=== PATIENT | male | born 1985 | race Caucasian/White ===

== ENCOUNTER 2024-05-26 01:01 | Emergency (ER) | payer MEDICAID, SELFPAY ==
--- OUTSIDE RECORDS SUMMARY | 2024-05-26 05:29 | XMS_ITS | Referral Summary ---
Author Organization [facility] Address [address] [place] [id number] Care Team Providers Care Garnett Feeder Name Role Phone Unknown, Notinfile Primary Care Provider Unavail able Encounters Date Type Department Care Team Description 04/29/2024 12:32 PM AUTO RESEARCH ENGINEER - 05/03/2024 7:16 PM AUTO RESEARCH ENGINEER Hospital Encounter [address] [address] Justus Walters MD Mustafa, Saim, DO Alcohol withdrawal syndrome with complication (HCC) (Primary Dx) Discharge Disposition: Discharge to home or self care from Last 3 Months Allergies No known active allergies Medications hydrOXYzine (VISTARIL) 25 mg capsule Take 1 capsule (25 mg total) by mouth every 6 (six) hours as needed for anxiety (Pt stated he takes it 3 times a day) 30 capsule 1 5 Active cyanocobalamin (Vitamin B-12) 2,000 mcg tabletIndicati ons:Prevention of Vitamin B12 Deficiency Take 1 tablet (2,000 mcg total) by mouth daily 30 tablet 1 5 07/04/19 25 Active folic acid (FOLVITE) 1 mg tablet Take 1 tablet (1 mg total) by mouth daily 30 tablet 1 5 07/04/19 25 Active nicotine (NICODERM CQ) [address] 1 patch on the skin daily 20 patch 5 06/03/19 25 Active thiamine (VITAMIN B1) 100 mg tabletIndicati ons:Thiamine Deficiency Take 1 tablet (100 mg total) by mouth daily 30 tablet 5 06/03/19 25 Active thiamine (VITAMIN B-1) 50 mg tablet Take 1 tablet (50 mg total) by mouth daily 30 tablet 3 4 04/29/19 25 Discontinued folic acid (FOLVITE) 1 mg tablet Take 1 tablet (1 mg total) by mouth daily 30 tablet 3 4 04/29/19 25 Discontinued hydrOXYzine (VISTARIL) 25 mg capsule Take 1 capsule (25 mg total) by mouth every 6 (six) hours as needed for anxiety (Pt stated he takes it 3 times a day) 05/03/19 25 Discontinued Active Problems Problem Noted Date Diagnosed Date Alcohol withdrawal syndrome with complication Moderate protein-calorie malnutrition (CMS/HCC) 01/15/2024 Alcohol withdrawal syndrome without complication 01/14/2024 Nausea & vomiting 01/14/2024 Elevated LFTs 01/14/2024 Hypomagnesemia 01/14/2024 Tobacco abuse 01/14/2024 Social History Tobacco Use Types Packs/Day Years Used Date Smoking Tobacco: Every Day Vaping Started: 2017 Tobacco Cessation:Ready to Q uit: Not Asked; Counseling Given: Not Answered [employer] Answer Date Recorded In the past 12 months has [employer], [employer], or water [employer] threatened to shut off services in your home? No 04/30/2024 Social Connection and Isolat ion Panel [NHANES] Answer Date Recorded In a typical week, how many times do you talk on the phone with family, friends, or neighbors? More than three times a week 04/30/2024 How often do you get togethe r with friends or relatives? More than three times a week 04/30/2024 How often do you attend chur ch or muslim services? Never 04/30/2024 Do you belong to any clubs o r organizations such as catholic groups, unions, fraternal or athletic groups, or school groups? No 04/30/2024 How often do you attend meet ings of the clubs or organizations you belong to? Never 04/30/2024 Are you , , di vorced, , never , or living with a partner? Never 04/30/2024 Overall Financial Resource Strain (CARDIA) Answe r Date Recorded How hard is it for you to pa y for the very basics like food, housing, medical care, and heating? Not hard at all 04/30/2024 Hunger Vital Sign Answer Date Recorded Within the past 12 months, y ou worried that your food would run out before you got the money to buy more. Never true 04/30/19 25 Within the past 12 months, t he food you bought just didn't last and you didn't have money to get more. Never true 04/30/2024 PRAPARE - Transportation Answer Date Re corded In the past 12 months, has l ack of transportation kept you from medical appointments or from getting medications? No 06/2024 In the past 12 months, has l ack of transportation kept you from meetings, work, or from getting things needed for daily living? No 04/30/2024 Housing Stability Vital Sign Answer Trent e Recorded In the last 12 months, was t here a time when you were not able to pay the mortgage or rent on time? No 04/30/2024 In the past 12 months, how m any times have you moved where you were living? 1 04/30/2024 At any time in the past 12 m [facility], were you homeless or living in a long-term (including now)? No 04/30/2024 Personal Safety Answer Date Recorded Have you ever been in or are you currently in a harmful physical or emotional relationship or is someone making you feel afraid or unsafe? Denies 04/29/2024 Sex and Gender Information Value Date Recorded Sex Assigned at Not on file Legal Sex Male 2:05 PM CDT Gender Identity Male 04/29/2024 11:05 AM AUTO RESEARCH ENGINEER Sexual Orientation Not on file Last Filed Vital Signs Vital Sign Reading Time Taken Comments Blood Pressure 123/71 05/03/2024 3:54 PM AUTO RESEARCH ENGINEER Pulse 82 05/03/2024 3:54 PM AUTO RESEARCH ENGINEER Temperature 36.9 ??C (98.4 ??F) 05/03/2024 3:54 PM CS T Respiratory Rate 18 05/03/2024 3:54 PM AUTO RESEARCH ENGINEER Oxygen Saturation 99% 05/03/2024 3:54 PM AUTO RESEARCH ENGINEER Inhaled Oxygen Concentration - - Weight 70.4 kg (155 lb 4.8 oz) 04/29/2024 3:40 P M AUTO RESEARCH ENGINEER Height 175.3 cm (5' 9 ) 04/29/2024 3:40 PM AUTO RESEARCH ENGINEER Body Mass Index 22.93 04/29/2024 3:40 PM AUTO RESEARCH ENGINEER Plan of Treatment Not on file Procedures Procedure Name Priority Date/Time Associated Diagnosis Comments EGFR Routine 05/01/2024 3:26 AM AUTO RESEARCH ENGINEER DIFFERENTIAL AUTO Routine 05/01/2024 3:2 6 AM AUTO RESEARCH ENGINEER PHOSPHORUS Routine 05/01/2024 3:26 AM AUTO RESEARCH ENGINEER MAGNESIUM Routine 05/01/2024 3:26 AM AUTO RESEARCH ENGINEER COMPREHENSIVE METABOLIC PANEL Routine 05/01/2024 3:26 AM AUTO RESEARCH ENGINEER CBC WITH AUTO DIFFERENTIAL Routine 05/01/2024 3:26 AM AUTO RESEARCH ENGINEER XR CHEST 1 VIEW IP Routine 04/30/2024 10:36 AM AUTO RESEARCH ENGINEER ECG 12-LEAD Routine 04/30/2024 9:10 AM AUTO RESEARCH ENGINEER VITAMIN B12 Routine 04/30/2024 8:42 AM AUTO RESEARCH ENGINEER TROPONIN T HIGH-SENSITIVITY Routine 04/30/2024 8:42 AM AUTO RESEARCH ENGINEER EGFR Routine 04/30/2024 8:42 AM AUTO RESEARCH ENGINEER DIFFERENTIAL AUTO Routine 04/30/2024 8:4 2 AM AUTO RESEARCH ENGINEER PHOSPHORUS Routine 04/30/2024 8:42 AM AUTO RESEARCH ENGINEER MAGNESIUM Routine 04/30/2024 8:42 AM AUTO RESEARCH ENGINEER COMPREHENSIVE METABOLIC PANEL Routine 04/30/2024 8:42 AM AUTO RESEARCH ENGINEER CBC WITH AUTO DIFFERENTIAL Routine 04/30/2024 8:42 AM AUTO RESEARCH ENGINEER ECG 12-LEAD Routine 04/29/2024 1:26 PM AUTO RESEARCH ENGINEER DRUGS OF ABUSE SCREEN, URINE WITHOUT CONFIRMATION STAT 04/29/2024 11:15 AM AUTO RESEARCH ENGINEER URINALYSIS AND REFLEX TO MICROSCOPIC AND CULTURE STAT 04/29/2024 11:15 AM AUTO RESEARCH ENGINEER EGFR STAT 04/29/2024 11:04 AM AUTO RESEARCH ENGINEER DIFFERENTIAL AUTO STAT 04/29/2024 11: 04 AM AUTO RESEARCH ENGINEER ETHANOL STAT 04/29/2024 11:04 AM AUTO RESEARCH ENGINEER THYROID FUNCTION CASCADE STAT 04/29/2024 11:04 AM AUTO RESEARCH ENGINEER COMPREHENSIVE METABOLIC PANEL STAT 04/29/2024 11:04 AM AUTO RESEARCH ENGINEER CBC WITH AUTO DIFFERENTIAL STAT 04/29/2024 11:04 AM AUTO RESEARCH ENGINEER INFLUENZA A/B, RSV, AND COVID-19 PCR Routine 04/29/2024 11:04 AM AUTO RESEARCH ENGINEER from Last 3 Months Results * eGFR (05/01/2024 3:26 AM AUTO RESEARCH ENGINEER) eGFR >90 >=60 mL/min/1. 73 m2 Comment: Interpretive Data Reference Interval Normal ?>/= 90 mL/min/1.73m2 Mildly decreased* ? 60 - 89 mL/min/1.73m2 Mildly to moderately decreased ?45 - 59 mL/min/1.73m2 Moderately to severely decreased ??30 - 44 mL/min/1.73m2 Severely decreased ?15 - 29 mL/min/1.73m2 Kidney Failure ?< 15 ??mL/min/1.73m2 *Relative to young adult level Estimated glomerular filtration rate is determined by the 2020 CKD-EPI equation recommended by the National Kidney Foundation (A Unifying Approach to GFR Estimation: Recommendations of the NKF-ASK Task Force on Reassessing the Inclusion of Race in Diagnosing Kidney Disease, JASN 2020). The CKD-EPI equation should not be used for patients with unstable renal function and has not been validated in children and those over 70. Current interpretive data was last reviewed 2021. Blood 05/01/2024 3:26 AM AUTO RESEARCH ENGINEER 05/01/2024 3:40 AM AUTO RESEARCH ENGINEER Marilia Cooper NP LAB BLOOD ORDERABLES Valeri sharlene Result [facility] [address] [facility] Department [place] [address] * Differential, auto (05/01/2024 3:26 AM AUTO RESEARCH ENGINEER) Neutrophil abs 4.2 1.5 - 6.5 K/cumm Imm gran abs 0.0 0.0 - 0.1 K/cumm [facility] Lymphocyte abs 2.3 0.8 - 3.3 K/cumm [facility] Monocyte abs 0.6 0.2 - 0.8 K/cumm [facility] Eosinophil abs 0.3 0.0 - 0.5 K/cumm [facility] Basophil abs 0.1 0.0 - 0.1 K/cumm [facility] Neutrophil pct 56.6 % [facility] Comment: Interpretive Data Percent cell count reference ranges are not reported, since discordance with absolute values may lead to misinterpretation of CBC data. Current Interpretive Data was last revised on 2017. Imm gran pct 0.3 % [facility] Comment: Interpretive Data Percent cell count reference ranges are not reported, since discordance with absolute values may lead to misinterpretation of CBC data. Current Interpretive Data was last revised on 2017. Lymphocyte pct 30.7 % [facility] Comment: Interpretive Data Percent cell count reference ranges are not reported, since discordance with absolute values may lead to misinterpretation of CBC data. Current Interpretive Data was last revised on 2017. Monocyte pct 8.0 % [facility] Comment: Interpretive Data Percent cell count reference ranges are not reported, since discordance with absolute values may lead to misinterpretation of CBC data. Current Interpretive Data was last revised on 2017. Eosinophil pct 3.7 % [facility] Comment: Interpretive Data Percent cell count reference ranges are not reported, since discordance with absolute values may lead to misinterpretation of CBC data. Current Interpretive Data was last revised on 2017. Basophil pct 0.7 % [facility] Comment: Interpretive Data Percent cell count reference ranges are not reported, since discordance with absolute values may lead to misinterpretation of CBC data. Current Interpretive Data was last revised on 2017. Blood 05/01/2024 3:26 AM AUTO RESEARCH ENGINEER 05/01/2024 3:40 AM AUTO RESEARCH ENGINEER Marilia Cooper NP LAB BLOOD ORDERABLES Valeri l Result [facility] [address] [facility] [place] [address] * CBC with auto differential (05/01/2024 3:26 AM AUTO RESEARCH ENGINEER) [facility] WBC 7.4 3.8 - 9.9 K/cumm Hgb 13.0 13.0 - 17.5 g/dL [facility] Hct 39.0 38.9 - 50.3 % [facility] Plt 226 150 - 400 K/cumm [facility] MPV 9.5 9.1 - 12.3 fL [facility] RBC 4.33 4.30 - 5.80 M/cumm [facility] MCV 90.1 81.3 - 96.4 fL [facility] MCH 30.0 27.1 - 33.3 pg [facility] MCHC 33.3 32.3 - 35.7 g/dL [facility] RDW CV 12.1 11.1 - 14.9 % [facility] RDW SD 39.7 35.7 - 48.1 fL [facility] NRBC abs 0.00 0.00 - 0.01 K/cumm [facility] Blood 05/01/2024 3:26 AM AUTO RESEARCH ENGINEER 05/01/2024 3:40 AM AUTO RESEARCH ENGINEER Marilia Cooper NP LAB BLOOD ORDERABLES Valeri l Result Performing Organization Address [facility] Co de Phone Number [id number] [address] * Phosphorus (05/01/2024 3:26 AM AUTO RESEARCH ENGINEER) [facility] Phosphorus, pl 4.4 2.3 - 4.5 mg/dL Blood 05/01/2024 3:26 AM AUTO RESEARCH ENGINEER 05/01/2024 3:40 AM AUTO RESEARCH ENGINEER Marilia Cooper SPUN PASTE MACHINE OPERATOR LAB BLOOD ORDERABLES Valeri l Result Performing Organization Address [facility] Co de Phone Number [address] [place] [address] * Magnesium (05/01/2024 3:26 AM AUTO RESEARCH ENGINEER) [facility] Magnesium 1.8 1.4 - 2.5 mg/dL Blood 05/01/2024 3:26 AM AUTO RESEARCH ENGINEER 05/01/2024 3:40 AM AUTO RESEARCH ENGINEER Marilia Cooper SPUN PASTE MACHINE OPERATOR LAB BLOOD ORDERABLES Valeri l Result Performing Organization Address [facility] de Phone Number [address] [address] * (ABNORMAL) Comprehensive metabolic panel (05/01/2024 3:26 AM AUTO RESEARCH ENGINEER) [facility] Sodium 139 135 - 145 mmol/L Potassium, pl 3.9 3.3 - 4.9 mmol/L [facility] Chloride 105 97 - 110 mmol/L [facility] CO2 24 22 - 32 mmol/L [facility] Anion gap 10 2 - 15 mmol/L [facility] BUN 12 6 - 25 mg/dL [facility] Creatinine 0.70(L) 0.80 - 1.30 mg/dL [facility] Glucose 109 70 - 199 mg/dL [facility] Comment: Interpretive Data Fasting glucose >/= 126 mg/dl is diagnostic for diabetes. ?? Fasting is defined as no caloric intake for at least 8 hours. Fasting glucose between 100 mg/dl to 125 mg/dl is diagnostic of prediabetes. In a patient with classic symptoms of hyperglycemia or hyperglycemic crisis, a random glucose >/= 200 mg/dl is diagnostic for diabetes. In the absence of unequivocal hyperglycemia, results should be confirmed by repeat testing. The classification and Diagnosis of Diabetes Diabetes Care 2021; 46: S19-S40. Current interpretive data was last revised 2022. Calcium 9.5 8.5 - 10.3 mg/dL [facility] Bilirubin, total 0.3 0.1 - 1.2 mg/dL [facility] Protein, pl 6.5 6.5 - 8.5 g/dL [facility] Albumin 4.0 3.5 - 5.0 g/dL [facility] Alk phos 120 40 - 130 Units/L [facility] ALT 12 7 - 55 Units/L [facility] AST 20 10 - 50 Units/L [facility] Blood 05/01/2024 3:26 AM AUTO RESEARCH ENGINEER 05/01/2024 3:40 AM AUTO RESEARCH ENGINEER Marilia Cooper SPUN PASTE MACHINE OPERATOR LAB BLOOD ORDERABLES Valeri l Result [facility] [address] [facility] Department [place] [address] * XR Chest 1 View (04/30/2024 10:36 AM AUTO RESEARCH ENGINEER) Anatomical Region Laterality Modality Body, Chest N/A Computed Radiogr aphy 04/30/2024 12:3 9 PM AUTO RESEARCH ENGINEER Narrative 04/30/2024 12:41 PM AUTO RESEARCH ENGINEER EXAM DESCRIPTION: XR CHEST 1 VIEW REASON FOR STUDY: chest pain, productive cough ?? chest pain, productive cough ?? TECHNIQUE: 1 ??radiographic view(s) of the chest. COMPARISON: None available FINDINGS: LUNGS: ??No pneumonic consolidation or pulmonary edema is seen. ??No pleural effusion or pneumothorax. ?? HEART/MEDIASTINUM: ??Normal heart size and cardiomediastinal contours. LINES/TUBES: ??None. BONES: ??No acute displaced fracture or aggressive bone lesion is seen. Unremarkable visualized upper abdomen. IMPRESSION: No acute cardiopulmonary findings. THIS IS AN ELECTRONICALLY VERIFIED FINAL REPORT 04/30/2024 12:41 PM - Electronically signed by ??Vin VALIENTE D: ??04/30/2024 12:41 PM T: Report ID: [id number] Reading Location: ??[id number] Procedure Note Vin Snow MD - 04/30/2024 EXAM DESCRIPTION: XR CHEST 1 VIEW REASON FOR STUDY: chest pain, productive cough chest pain, productive cough TECHNIQUE: 1 radiographic view(s) of the chest. COMPARISON: None available FINDINGS: LUNGS: No pneumonic consolidation or pulmonary edema is seen.No pleural effusion or pneumothorax. HEART/MEDIASTINUM: Normal heart size and cardiomediastinal contours. LINES/TUBES: None. BONES: No acute displaced fracture or aggressive bone lesion is seen. Unremarkable visualized upper abdomen. IMPRESSION: No acute cardiopulmonary findings. THIS IS AN ELECTRONICALLY VERIFIED FINAL REPORT 04/30/2024 12:41 PM - Electronically signed by Vin VALIENTE T: Report ID: [id number] Reading Location: [id number] us Saim Alston DO IMG XR PROCEDURES Final Result * ECG 12 lead (04/30/2024 9:10 AM AUTO RESEARCH ENGINEER) Pathologist [facility] Ventricular Rate EKG/Min 77 BPM [facility] Atrial Rate 77 BPM [facility] NE-Interval (MSEC) 148 ms [facility] QRS-Interval (MSEC) 92 ms [facility] QT-Interval (MSEC) 404 ms [facility] QTc 457 ms [facility] P [place] 62 degrees [facility] R [place] 79 degrees [facility] T [place] 54 degrees [facility] Diagnosis Normal sinus rhythm Normal ECG When compared with ECG of 29-APR-2024 13:26, No significant change was found Confirmed by FREDIS RICCI M.D. ([id number]) on 04/30/2024 11:01:22 PM [facility] 04/30/2024 9:10 AM AUTO RESEARCH ENGINEER 04/30/2024 11:01 PM AUTO RESEARCH ENGINEER us Saim Alston DO ECG ORDERABLES Final Result Performing Organization Address City/[facility]/ZIP Co de Phone Number [facility] * Troponin T high-sensitivity (04/30/2024 8:42 AM AUTO RESEARCH ENGINEER) Trop T hs <6 <=22 ng/L Comment: Interpretive Data For further hscTnT resources including the diagnostic algorithm and an aid in interpretation, copy and paste this link: [email or web address].testcatalog.org/[email or web address] Current Interpretive Data last revised 2020. Blood 04/30/2024 8:42 AM AUTO RESEARCH ENGINEER 04/30/2024 8:55 AM AUTO RESEARCH ENGINEER Saviki Bundyafa DO LAB BLOOD ORDERABLES Final Resul t Performing Organization Address City/[facility] Co de Phone Number [facility] [facility] Department [place] [address] * eGFR (04/30/2024 8:42 AM AUTO RESEARCH ENGINEER) eGFR >90 >=60 mL/min/1. 73 m2 Comment: Interpretive Data Reference Interval Normal ?>/= 90 mL/min/1.73m2 Mildly decreased* ? 60 - 89 mL/min/1.73m2 Mildly to moderately decreased ?45 - 59 mL/min/1.73m2 Moderately to severely decreased ??30 - 44 mL/min/1.73m2 Severely decreased ?15 - 29 mL/min/1.73m2 Kidney Failure ?< 15 ??mL/min/1.73m2 *Relative to young adult level Estimated glomerular filtration rate is determined by the 2020 CKD-EPI equation recommended by the National Kidney Foundation (A Unifying Approach to GFR Estimation: Recommendations of the NKF-ASK Task Force on Reassessing the Inclusion of Race in Diagnosing Kidney Disease, JASN 2020). The CKD-EPI equation should not be used for patients with unstable renal function and has not been validated in children and those over 70. Current interpretive data was last reviewed 2021. Blood 04/30/2024 8:42 AM AUTO RESEARCH ENGINEER 04/30/2024 8:55 AM AUTO RESEARCH ENGINEER Marilia Cooper NP LAB BLOOD ORDERABLES Valeri sharlene Result [facility] [address] [facility] [place] [address] * Differential, auto (04/30/2024 8:42 AM AUTO RESEARCH ENGINEER) Neutrophil abs 3.7 1.5 - 6.5 K/cumm Imm gran abs 0.0 0.0 - 0.1 K/cumm [facility] Lymphocyte abs 1.5 0.8 - 3.3 K/cumm [facility] Monocyte abs 0.5 0.2 - 0.8 K/cumm [facility] Eosinophil abs 0.3 0.0 - 0.5 K/cumm [facility] Basophil abs 0.1 0.0 - 0.1 K/cumm [facility] Neutrophil pct 61.7 % [facility] Comment: Interpretive Data Percent cell count reference ranges are not reported, since discordance with absolute values may lead to misinterpretation of CBC data. Current Interpretive Data was last revised on 2017. Imm gran pct 0.2 % [facility] Comment: Interpretive Data Percent cell count reference ranges are not reported, since discordance with absolute values may lead to misinterpretation of CBC data. Current Interpretive Data was last revised on 2017. Lymphocyte pct 24.6 % [facility] Comment: Interpretive Data Percent cell count reference ranges are not reported, since discordance with absolute values may lead to misinterpretation of CBC data. Current Interpretive Data was last revised on 2017. Monocyte pct 7.6 % [facility] Comment: Interpretive Data Percent cell count reference ranges are not reported, since discordance with absolute values may lead to misinterpretation of CBC data. Current Interpretive Data was last revised on 2017. Eosinophil pct 5.1 % [facility] Comment: Interpretive Data Percent cell count reference ranges are not reported, since discordance with absolute values may lead to misinterpretation of CBC data. Current Interpretive Data was last revised on 2017. Basophil pct 0.8 % [facility] Comment: Interpretive Data Percent cell count reference ranges are not reported, since discordance with absolute values may lead to misinterpretation of CBC data. Current Interpretive Data was last revised on 2017. Blood 04/30/2024 8:42 AM AUTO RESEARCH ENGINEER 04/30/2024 8:55 AM AUTO RESEARCH ENGINEER Marilia Cooper NP LAB BLOOD ORDERABLES Valeri l Result Performing Organization Address [facility]/State/ZIP Co de Phone Number [facility] [address] [facility] Department [place] [address] * CBC with auto differential (04/30/2024 8:42 AM AUTO RESEARCH ENGINEER) [facility] WBC 6.1 3.8 - 9.9 K/cumm Hgb 13.0 13.0 - 17.5 g/dL [facility] Hct 39.4 38.9 - 50.3 % [facility] Plt 240 150 - 400 K/cumm [facility] MPV 9.8 9.1 - 12.3 fL [facility] RBC 4.32 4.30 - 5.80 M/cumm [facility] MCV 91.2 81.3 - 96.4 fL [facility] MCH 30.1 27.1 - 33.3 pg [facility] MCHC 33.0 32.3 - 35.7 g/dL [facility] RDW CV 12.3 11.1 - 14.9 % [facility] RDW SD 41.0 35.7 - 48.1 fL [facility] NRBC abs 0.00 0.00 - 0.01 K/cumm [facility] Blood 04/30/2024 8:42 AM AUTO RESEARCH ENGINEER 04/30/2024 8:55 AM AUTO RESEARCH ENGINEER Marilia Cooper NP LAB BLOOD ORDERABLES Valeri l Result Performing Organization Address [facility]/ZIP Co de Phone Number [address] [place] [address] * Phosphorus (04/30/2024 8:42 AM AUTO RESEARCH ENGINEER) Pathologist [facility] Phosphorus, pl 3.1 2.3 - 4.5 mg/dL Blood 04/30/2024 8:42 AM AUTO RESEARCH ENGINEER 04/30/2024 8:55 AM AUTO RESEARCH ENGINEER Marilia Cooper SPUN PASTE MACHINE OPERATOR LAB BLOOD ORDERABLES Valeri l Result Performing Organization Address City/[facility]/ZIP Co de Phone Number [address] [place] [address] * Magnesium (04/30/2024 8:42 AM AUTO RESEARCH ENGINEER) [facility] Magnesium 1.8 1.4 - 2.5 mg/dL Blood 04/30/2024 8:42 AM AUTO RESEARCH ENGINEER 04/30/2024 8:55 AM AUTO RESEARCH ENGINEER Marilia Cooper SPUN PASTE MACHINE OPERATOR LAB BLOOD ORDERABLES Valeri l Result Performing Organization Address [facility] Co de Phone Number [id number] [place] [address] * Vitamin B12 (04/30/2024 8:42 AM AUTO RESEARCH ENGINEER) [facility] Vitamin B12 256 230 - 1,250 pg/mL Blood 04/30/2024 8:42 AM AUTO RESEARCH ENGINEER 04/30/2024 8:55 AM AUTO RESEARCH ENGINEER Jasmin Alston DO LAB BLOOD ORDERABLES Final Resul t Performing Organization Address City/[facility]/ZIP Co de Phone Number [id number] [place] [address] * (ABNORMAL) Comprehensive metabolic panel (04/30/2024 8:42 AM AUTO RESEARCH ENGINEER) [facility] Sodium 137 135 - 145 mmol/L Potassium, pl 4.3 3.3 - 4.9 mmol/L [facility] Chloride 105 97 - 110 mmol/L [facility] CO2 25 22 - 32 mmol/L [facility] Anion gap 7 2 - 15 mmol/L [facility] BUN 11 6 - 25 mg/dL [facility] Creatinine 0.72(L) 0.80 - 1.30 mg/dL [facility] Glucose 110 70 - 199 mg/dL [facility] Comment: Interpretive Data Fasting glucose >/= 126 mg/dl is diagnostic for diabetes. ?? Fasting is defined as no caloric intake for at least 8 hours. Fasting glucose between 100 mg/dl to 125 mg/dl is diagnostic of prediabetes. In a patient with classic symptoms of hyperglycemia or hyperglycemic crisis, a random glucose >/= 200 mg/dl is diagnostic for diabetes. In the absence of unequivocal hyperglycemia, results should be confirmed by repeat testing. The classification and Diagnosis of Diabetes Diabetes Care 202; 46: S19-S40. Current interpretive data was last revised 2022. Calcium 9.2 8.5 - 10.3 mg/dL [facility] Bilirubin, total 0.3 0.1 - 1.2 mg/dL [facility] Protein, pl 6.3(L) 6.5 - 8.5 g/dL [facility] Albumin 3.9 3.5 - 5.0 g/dL [facility] Alk phos 118 40 - 130 Units/L [facility] ALT 12 7 - 55 Units/L [facility] AST 17 10 - 50 Units/L [facility] Blood 04/30/2024 8:42 AM AUTO RESEARCH ENGINEER 04/30/2024 8:55 AM AUTO RESEARCH ENGINEER us Marilia Cooper NP LAB BLOOD ORDERABLES Valeri l Result [facility] [address] [facility] [place] [address] * ECG 12 lead (04/29/2024 1:26 PM AUTO RESEARCH ENGINEER) Pathologist [facility] Ventricular Rate EKG/Min 85 BPM [facility] Atrial Rate 85 BPM [facility] NE-Interval (MSEC) 150 ms [facility] QRS-Interval (MSEC) 96 ms [facility] QT-Interval (MSEC) 402 ms [facility] QTc 478 ms [facility] P [place] 73 degrees [facility] R [place] 85 degrees [facility] T [place] 64 degrees [facility] Diagnosis Normal sinus rhythm Possible Left atrial enlargement Borderline ECG No previous ECGs available Confirmed by RICARDO KO M.D. ([id number]) on 04/29/2024 11:04:23 PM [facility] 04/29/2024 1:26 PM AUTO RESEARCH ENGINEER 04/29/2024 11:04 PM AUTO RESEARCH ENGINEER Tommy BHAKTA ECG ORDERABLES Fi nal Result Performing Organization Address City/[facility] Co de Phone Number [facility] * Urinalysis reflex to microscopic and culture Urine (04/29/2024 11:15 AM AUTO RESEARCH ENGINEER) Color, ur Straw Yellow Clarity, ur Clear Clear [facility] Specific gravity, ur 1.004 1.003 - 1.030 [facility] pH, urine 6.5 [facility] Comment: Interpretive Data ? Urine pH is affected by diet, medications, systemic acid-base disturbances, and renal tubular function. ??pH may affect urinary stone formation. ??For example, urine pH below 6.0 may help reduce the tendency for calcium phosphate stones and pH greater than 6.0 may reduce the tendency for uric acid stone formation. Source: [facility] Current Interpretive Data was last revised on 2017 Protein, ur ql Negative Negative [facility] Glucose, ur ql Negative Negative [facility] Ketones, ur Negative Negative [facility] Bilirubin, ur Negative Negative [facility] Blood, ur Negative Negative [facility] Urobilinogen, ur <2.0 <2.0 mg/dL [facility] Nitrite, ur Negative Negative [facility] Leukocyte esterase, ur Negative Negative [facility] UA reflex comment Reflex conditions for microscopic UA and culture not met. [facility] Urine 04/29/2024 11:1 5 AM AUTO RESEARCH ENGINEER 04/29/2024 11:21 AM AUTO RESEARCH ENGINEER Joshua Murphy MD LAB MICROBIOLOGY - GENERAL SUDHA CASTANEDA Final Result [facility] [address] [facility] Department [place] [address] * Drugs of Abuse Screen, Urine without Confirmation (04/29/2024 11:15 AM AUTO RESEARCH ENGINEER) Amphetamine, ur Not Detected CutOff 500ng/mL Comment: Interpretive Data - Amphetamines: ??Samples containing greater than 500 ng/mL d-methamphetamine ??or other cross-reacting amphetamine compounds are reported as positive. ??Amphetamine immunoassays are subject to significant false positive rates due to cross-reactivity of non-amphetamine drugs. Confirmatory testing required for definitive results. Current Interpretive Data was last reviewed 2022. Barbiturates, ur Not Detected CutOff 200ng/mL [facility] Comment: Interpretive Data - Barbiturates: ??Samples containing greater than 200 ng/mL secobarbital or other cross-reacting barbiturate compounds are reported as positive. ??False positive and false negative results are possible. Confirmatory testing required for definitive results. Current Interpretive Data was last reviewed 2022. Benzodiazepines, ur Not Detected CutOff 100ng/mL [facility] Comment: Interpretive Data - Benzodiazepines: ??Samples containing greater than 100 ng/mL nordiazepam or other cross-reacting compounds are reported as positive. False positive and false negative results are possible. Confirmatory testing required for definitive results. Current Interpretive Data was last reviewed 2022. Cannabinoids, ur Not Detected CutOff 50 ng/mL [facility] Comment: Interpretive Data - Cannabinoids: ??Samples containing greater than 50 ng/mL delta-9 THC -COOH or other cross-reacting compounds are reported as positive. ??False positive and false negative results are possible. ??Confirmatory testing required for definitive results. Current Interpretive Data was last reviewed 2022. Cocaine, ur Not Detected CutOff 150ng/mL [facility] Comment: Interpretive Data - Cocaine: ??Samples containing greater than 150 ng/mL benzoylecgonine or other cross-reacting compounds are reported as positive. False positive and false negative results are possible. Confirmatory testing required for definitive results. Current Interpretive Data was last reviewed 2022. Fentanyl, Ur Not Detected CutOff 5 ng/mL [facility] Comment: Interpretive Data - Fentanyl: ?? Samples containing greater than 5 ng/mL norfentanyl, fentanyl, or other cross-reacting fentanyl compounds are reported as positive. False positive and false negative results are possible. Confirmatory testing required for definitive results. Current Interpretive Data was last reviewed 2023. Methadone, ur Not Detected CutOff 300ng/mL [facility] Comment: Interpretive Data - Methadone: ??Samples containing greater than 300 ng/mL d,l-methadone or other cross-reacting compounds are reported as positive. ??False positive and false negative results are possible. Confirmatory testing required for definitive results. Current Interpretive Data was last reviewed 2022. Opiates, ur Not Detected CutOff 300ng/mL [facility] Comment: Interpretive Data - Opiates: ??Samples containing greater than 300 ng/mL morphine or other cross-reacting compounds are reported as positive. ??False positive and false negative results are possible. Confirmatory testing required for definitive results. Current Interpretive Data was last reviewed 2022. Oxycodone, ur Not Detected CutOff 100ng/mL [facility] Comment: Interpretive Data - Oxycodone: ??Samples containing greater than 100 ng/mL oxycodone or other cross-reacting compounds are reported as ??positive. ??False positive and false negative results are possible. Confirmatory testing required for definitive results. Current Interpretive Data was last reviewed 2022. Phencyclidine, ur Not Detected CutOff 25 ng/mL [facility] Comment: Interpretive Data - Phencyclidine: ??Samples containing greater than 25 ng/mL phencyclidine or other cross-reacting compounds are reported as positive. ??False positive and false negative results are possible. Confirmatory testing required for definitive results. Current Interpretive Data was last reviewed 2022. Urine Creatinine 15 mg/dL [facility] Comment: Interpretive Data Urine Creatinine: < 10 mg/dL is extremely dilute = or > 10 but < 20 mg/dL is dilute = or > 20 mg/dL is normal Current Interpretive Data was last revised on 2017. Urine 04/29/2024 11:1 5 AM AUTO RESEARCH ENGINEER 04/29/2024 11:21 AM AUTO RESEARCH ENGINEER Narrative [facility] - 04/29/2024 11:48 AM AUTO RESEARCH ENGINEER Drug of Abuse screening is performed by immunoassay for medical purposes only. ??This is not to be used for Pain Management purposes. [facility] Jeffrey FLORES LAB URINE ORDERABLES Final Resu lt Performing Organization Address [facility] Co de Phone Number [facility] [address] [place] [address] * Influenza A/B, RSV, and COVID-19 PCR Nasopharyngeal (04/29/2024 11:04 AM AUTO RESEARCH ENGINEER) [facility] COVID-19 RNA Negative Negative Influenza A RNA Negative Negative [facility] Influenza B RNA Negative Negative [facility] RSV RNA Negative Negative [facility] Comment: Interpretive data: Testing performed by [facility]. This test is performed using the [employer] Xpress CoV-2/Flu/RSV plus assay. This is a multiplex, real-time reverse transcriptase PCR assay intended for the qualitative detection of nucleic acid from SARS-CoV-2, influenza A, influenza B, and respiratory syncytial virus. This assay has been cleared by the [place] Food and Drug administration. The performance characteristics have been verified by the [facility]. ??Results must be considered in the clinical context, and a negative result does not rule out infection. Interpretive Data last revised 2023 Nasopharyngeal 04/29/2024 11 :04 AM AUTO RESEARCH ENGINEER 04/29/2024 11:08 AM AUTO RESEARCH ENGINEER Narrative [facility] - 04/29/2024 11:51 AM AUTO RESEARCH ENGINEER Is the Patient experiencing symptoms consistent with COVID?->No [facility] Jeffrey FLORES LAB MICROBIOLOGY - GENERAL ORDE RABLES Final Result Performing Organization Address [facility] de Phone Number [facility] [address] [facility] [place] [address] * eGFR (04/29/2024 11:04 AM AUTO RESEARCH ENGINEER) [facility] eGFR >90 >=60 mL/min/1. 73 m2 Comment: Interpretive Data Reference Interval Normal ?>/= 90 mL/min/1.73m2 Mildly decreased* ? 60 - 89 mL/min/1.73m2 Mildly to moderately decreased ?45 - 59 mL/min/1.73m2 Moderately to severely decreased ??30 - 44 mL/min/1.73m2 Severely decreased ?15 - 29 mL/min/1.73m2 Kidney Failure ?< 15 ??mL/min/1.73m2 *Relative to young adult level Estimated glomerular filtration rate is determined by the 2020 CKD-EPI equation recommended by the National Kidney Foundation (A Unifying Approach to GFR Estimation: Recommendations of the NKF-ASK Task Force on Reassessing the Inclusion of Race in Diagnosing Kidney Disease, JASN 2020). The CKD-EPI equation should not be used for patients with unstable renal function and has not been validated in children and those over 70. Current interpretive data was last reviewed 2021. Blood 04/29/2024 11:0 4 AM AUTO RESEARCH ENGINEER 04/29/2024 11:08 AM AUTO RESEARCH ENGINEER us Rehab Jeffrey FLORES LAB BLOOD ORDERABLES Final Resu lt [facility] [address] [facility] Department [place] [address] * Differential, auto (04/29/2024 11:04 AM AUTO RESEARCH ENGINEER) Pathologist [facility] Neutrophil abs 5.1 1.5 - 6.5 K/cumm Imm gran abs 0.0 0.0 - 0.1 K/cumm [facility] Lymphocyte abs 1.6 0.8 - 3.3 K/cumm [facility] Monocyte abs 0.6 0.2 - 0.8 K/cumm [facility] Eosinophil abs 0.1 0.0 - 0.5 K/cumm [facility] Basophil abs 0.1 0.0 - 0.1 K/cumm [facility] Neutrophil pct 68.9 % [facility] Comment: Interpretive Data Percent cell count reference ranges are not reported, since discordance with absolute values may lead to misinterpretation of CBC data. Current Interpretive Data was last revised on 2017. Imm gran pct 0.1 % [facility] Comment: Interpretive Data Percent cell count reference ranges are not reported, since discordance with absolute values may lead to misinterpretation of CBC data. Current Interpretive Data was last revised on 2017. Lymphocyte pct 21.5 % [facility] Comment: Interpretive Data Percent cell count reference ranges are not reported, since discordance with absolute values may lead to misinterpretation of CBC data. Current Interpretive Data was last revised on 2017. Monocyte pct 7.7 % [facility] Comment: Interpretive Data Percent cell count reference ranges are not reported, since discordance with absolute values may lead to misinterpretation of CBC data. Current Interpretive Data was last revised on 2017. Eosinophil pct 1.1 % [facility] Comment: Interpretive Data Percent cell count reference ranges are not reported, since discordance with absolute values may lead to misinterpretation of CBC data. Current Interpretive Data was last revised on 2017. Basophil pct 0.7 % [facility] Comment: Interpretive Data Percent cell count reference ranges are not reported, since discordance with absolute values may lead to misinterpretation of CBC data. Current Interpretive Data was last revised on 2017. Blood 04/29/2024 11:0 4 AM AUTO RESEARCH ENGINEER 04/29/2024 11:08 AM AUTO RESEARCH ENGINEER Rehab Jeffrey FLORES LAB BLOOD ORDERABLES Final Resu lt Performing Organization Address City/State/[facility] Co de Phone Number [facility] [address] [facility] [place] [address] * Thyroid Function [place] (04/29/2024 11:04 AM AUTO RESEARCH ENGINEER) TSH 1.08 0.30 - 4.20 mcIUnit/mL Blood 04/29/2024 11:0 4 AM AUTO RESEARCH ENGINEER 04/29/2024 11:08 AM AUTO RESEARCH ENGINEER Rehab Jeffrey FLORES LAB BLOOD ORDERABLES Final Resu lt Performing Organization Address City/[facility] Co de Phone Number [id number] [address] * CBC with auto differential (04/29/2024 11:04 AM AUTO RESEARCH ENGINEER) Pathologist [facility] WBC 7.4 3.8 - 9.9 K/cumm Hgb 14.0 13.0 - 17.5 g/dL [facility] Hct 43.0 38.9 - 50.3 % [facility] Plt 259 150 - 400 K/cumm [facility] MPV 9.4 9.1 - 12.3 fL [facility] RBC 4.74 4.30 - 5.80 M/cumm [facility] MCV 90.7 81.3 - 96.4 fL [facility] MCH 29.5 27.1 - 33.3 pg [facility] MCHC 32.6 32.3 - 35.7 g/dL [facility] RDW CV 12.1 11.1 - 14.9 % [facility] RDW SD 40.1 35.7 - 48.1 fL [facility] NRBC abs 0.00 0.00 - 0.01 K/cumm [facility] Blood (Blood, Venous) 04/29/2024 11:04 AM AUTO RESEARCH ENGINEER 04/29/2024 11:08 AM AUTO RESEARCH ENGINEER Rehab Jeffrey FLORES LAB BLOOD ORDERABLES Final Resu Performing Organization Address [facility] Co de Phone Number [id number] [address] * (ABNORMAL) Ethanol (04/29/2024 11:04 AM AUTO RESEARCH ENGINEER) Pathologist [facility] Ethanol 58(H) <=10 mg/dL Comment: Interpretive Data Legal limit of intoxication > or = 80 mg/dL Levels > or = 400 mg/dL are potentially TOXIC. Current interpretive data was last revised on 2018. Blood 04/29/2024 11:0 4 AM AUTO RESEARCH ENGINEER 04/29/2024 11:08 AM AUTO RESEARCH ENGINEER us Rehab Jeffrey FLORES LAB BLOOD ORDERABLES Final Resu lt Performing Organization Address [facility]/ZIP Co de Phone Number ALBER [address] [facility] [place] [address] * (ABNORMAL) Comprehensive metabolic panel (04/29/2024 11:04 AM AUTO RESEARCH ENGINEER) Sodium 138 135 - 145 mmol/L Potassium, pl 4.0 3.3 - 4.9 mmol/L [facility] Chloride 100 97 - 110 mmol/L [facility] CO2 27 22 - 32 mmol/L [facility] Anion gap 11 2 - 15 mmol/L [facility] BUN 11 6 - 25 mg/dL [facility] Creatinine 0.69(L) 0.80 - 1.30 mg/dL [facility] Glucose 117 70 - 199 mg/dL [facility] Comment: Interpretive Data Fasting glucose >/= 126 mg/dl is diagnostic for diabetes. ?? Fasting is defined as no caloric intake for at least 8 hours. Fasting glucose between 100 mg/dl to 125 mg/dl is diagnostic of prediabetes. In a patient with classic symptoms of hyperglycemia or hyperglycemic crisis, a random glucose >/= 200 mg/dl is diagnostic for diabetes. In the absence of unequivocal hyperglycemia, results should be confirmed by repeat testing. The classification and Diagnosis of Diabetes Diabetes Care 202; 46: S19-S40. Current interpretive data was last revised 2022. Calcium 9.6 8.5 - 10.3 mg/dL [facility] Bilirubin, total 0.3 0.1 - 1.2 mg/dL [facility] Protein, pl 7.7 6.5 - 8.5 g/dL [facility] Albumin 4.7 3.5 - 5.0 g/dL [facility] Alk phos 142(H) 40 - 130 Units/L [facility] ALT 13 7 - 55 Units/L [facility] AST 22 10 - 50 Units/L [facility] Blood 04/29/2024 11:0 4 AM AUTO RESEARCH ENGINEER 04/29/2024 11:08 AM AUTO RESEARCH ENGINEER us Rehab Jeffrey FLORES LAB BLOOD ORDERABLES Final Resu lt Performing Organization Address [facility]/ZIP Co de Phone Number [facility]BER [address] [facility] [place] [address] from Last 3 Months Insurance [facility] Advance Directives For more information, please contact: [phone] * Full Code (Latest Code Status on File) Date Activated Date Inactivated Comments 04/29/2024 1:21 PM 05/03/2024 11:16 PM * Full Code Date Activated Date Inactivated Comments 01/14/2024 6:12 PM 01/19/2024 3:25 PM Care Teams Garnett Feeder Relationship Specialty Start Date End Date Unknown, Notinfile PCP - General 01/14/24
--- OUTSIDE RECORDS SUMMARY | 2024-05-26 05:29 | XMS_ITS | Clinical Summary ---
Author Organization [facility] Address [address] [place] [address] Care Team Providers Care Oil Lease Operator Name Role Phone Unknown, Notinfile Primary Care Provider Unavail able Allergies No known active allergies Medications hydrOXYzine [...] LFTs 01/14/2024 Hypomagnesemia 01/14/2024 Tobacco abuse 01/14/2024 Encounters Date Type Department Care Team Description 04/29/2024 12:32 PM HEARING AID ASSEMBLY SUPERVISOR - 05/03/2024 7:16 PM HEARING AID ASSEMBLY SUPERVISOR Hospital Encounter [address] [id number] Justus Walters MD Mustafa, Saim, DO Alcohol withdrawal syndrome with complication (HCC) (Primary Dx) Discharge Disposition: Discharge to home or self care from Last 3 Months Surgical History Surgery Date Site/Laterality Comments CT CHEST TUBE INSERTION RIGHT Medical History Medical History Date Comments Alcohol abuse Hallucinations, visual and audit ory during detox Spontaneous pneumothorax right l mary Social History Tobacco Use Types Packs/Day Years Used Date Smoking Tobacco: Every Day Vaping Started: 2017 Tobacco Cessation:Ready to Q uit: Not Asked; Counseling Given: Not Answered [facility] Utilities Answer Date Recorded In the past 12 months has e electric, gas, oil, or water company threatened to shut off services in your [...] often do you attend chur ch or religion services? Never 04/30/2024 Do you belong to any clubs o r organizations such as religious groups, unions, fraternal or athletic groups, or [...] any time in the past 12 m [facility], were you homeless or living in a [place] health [place] facility (including now)? No 04/30/2024 Personal Safety Answer Date Recorded Have you ever been in or are you currently in a harmful physical or emotional relationship or is someone making you feel afraid or unsafe? Denies 04/29/2024 Sex and Gender Information Value Date Recorded Sex Assigned at Not on file Legal Sex Male 2:05 PM CDT Gender Identity Male 04/29/2024 11:05 AM HEARING AID ASSEMBLY SUPERVISOR Sexual Orientation Not on file Obstetrics History Last Filed Vital Signs Vital Sign Reading Time Taken Comments Blood Pressure 123/71 05/03/2024 3:54 PM HEARING AID ASSEMBLY SUPERVISOR Pulse 82 05/03/2024 3:54 PM HEARING AID ASSEMBLY SUPERVISOR Temperature 36.9 ??C (98.4 ??F) 05/03/2024 3:54 PM CS T Respiratory Rate 18 05/03/2024 3:54 PM HEARING AID ASSEMBLY SUPERVISOR Oxygen Saturation 99% 05/03/2024 3:54 PM HEARING AID ASSEMBLY SUPERVISOR Inhaled Oxygen Concentration - - Weight 70.4 kg (155 lb 4.8 oz) 04/29/2024 3:40 P M HEARING AID ASSEMBLY SUPERVISOR Height 175.3 cm (5' 9 ) 04/29/2024 3:40 PM HEARING AID ASSEMBLY SUPERVISOR Body Mass Index 22.93 04/29/2024 3:40 PM HEARING AID ASSEMBLY SUPERVISOR Plan of Treatment Health Maintenance Due Date Last Done Comments Depression Screening 1983 Hepatitis C Screening 1985 Pneumococcal vaccine <65 (1 of 2 - PCV) 09/03/1989 Varicella Vaccines (1 of 2 - 13+ 2-dose series) 09/03/1996 Regular Well Visit/Exam 18-64 09/03/2001 Influenza Vaccine (#1) 2023 06/26/2018 DTaP/Tdap/Td Vaccine (2 - Td or Tdap) 06/26/2028 06/26/2018, 10/07/1996 HPV Vaccines Aged Out No longer eligi ble based on patient's age to complete this topic Procedures Procedure Name Priority Date/Time Associated Diagnosis Comments EGFR Routine 05/01/2024 3:26 AM HEARING AID ASSEMBLY SUPERVISOR DIFFERENTIAL AUTO Routine 05/01/2024 3:2 6 AM HEARING AID ASSEMBLY SUPERVISOR PHOSPHORUS Routine 05/01/2024 3:26 AM HEARING AID ASSEMBLY SUPERVISOR MAGNESIUM Routine 05/01/2024 3:26 AM HEARING AID ASSEMBLY SUPERVISOR COMPREHENSIVE METABOLIC PANEL Routine 05/01/2024 3:26 AM HEARING AID ASSEMBLY SUPERVISOR CBC WITH AUTO DIFFERENTIAL Routine 05/01/2024 3:26 AM HEARING AID ASSEMBLY SUPERVISOR XR CHEST 1 VIEW IP Routine 04/30/2024 10:36 AM HEARING AID ASSEMBLY SUPERVISOR ECG 12-LEAD Routine 04/30/2024 9:10 AM HEARING AID ASSEMBLY SUPERVISOR VITAMIN B12 Routine 04/30/2024 8:42 AM HEARING AID ASSEMBLY SUPERVISOR TROPONIN T HIGH-SENSITIVITY Routine 04/30/2024 8:42 AM HEARING AID ASSEMBLY SUPERVISOR EGFR Routine 04/30/2024 8:42 AM HEARING AID ASSEMBLY SUPERVISOR DIFFERENTIAL AUTO Routine 04/30/2024 8:4 2 AM HEARING AID ASSEMBLY SUPERVISOR PHOSPHORUS Routine 04/30/2024 8:42 AM HEARING AID ASSEMBLY SUPERVISOR MAGNESIUM Routine 04/30/2024 8:42 AM HEARING AID ASSEMBLY SUPERVISOR COMPREHENSIVE METABOLIC PANEL Routine 04/30/2024 8:42 AM HEARING AID ASSEMBLY SUPERVISOR CBC WITH AUTO DIFFERENTIAL Routine 04/30/2024 8:42 AM HEARING AID ASSEMBLY SUPERVISOR ECG 12-LEAD Routine 04/29/2024 1:26 PM HEARING AID ASSEMBLY SUPERVISOR DRUGS OF ABUSE SCREEN, URINE WITHOUT CONFIRMATION STAT 04/29/2024 11:15 AM HEARING AID ASSEMBLY SUPERVISOR URINALYSIS AND REFLEX TO MICROSCOPIC AND CULTURE STAT 04/29/2024 11:15 AM HEARING AID ASSEMBLY SUPERVISOR EGFR STAT 04/29/2024 11:04 AM HEARING AID ASSEMBLY SUPERVISOR DIFFERENTIAL AUTO STAT 04/29/2024 11: 04 AM HEARING AID ASSEMBLY SUPERVISOR ETHANOL STAT 04/29/2024 11:04 AM HEARING AID ASSEMBLY SUPERVISOR THYROID FUNCTION CASCADE STAT 04/29/2024 11:04 AM HEARING AID ASSEMBLY SUPERVISOR COMPREHENSIVE METABOLIC PANEL STAT 04/29/2024 11:04 AM HEARING AID ASSEMBLY SUPERVISOR CBC WITH AUTO DIFFERENTIAL STAT 04/29/2024 11:04 AM HEARING AID ASSEMBLY SUPERVISOR INFLUENZA A/B, RSV, AND COVID-19 PCR Routine 04/29/2024 11:04 AM HEARING AID ASSEMBLY SUPERVISOR from Last 3 Months Results * eGFR (05/01/2024 3:26 AM HEARING AID ASSEMBLY SUPERVISOR) eGFR >90 >=60 mL/min/1. 73 m2 Comment: [...] last reviewed 2021. Blood 05/01/2024 3:26 AM HEARING AID ASSEMBLY SUPERVISOR 05/01/2024 3:40 AM HEARING AID ASSEMBLY SUPERVISOR us Marilia Cooper NP LAB BLOOD ORDERABLES Valeri su Result [facility] [address] [facility] [place] [address] * Differential, auto (05/01/2024 3:26 AM HEARING AID ASSEMBLY SUPERVISOR) Pathologist [facility] Neutrophil abs 4.2 1.5 - 6.5 K/cumm Imm gran abs 0.0 0.0 - 0.1 K/cumm [facility] Lymphocyte abs 2.3 0.8 - 3.3 K/cumm [facility] Monocyte abs 0.6 0.2 - 0.8 K/cumm [facility] Eosinophil abs 0.3 0.0 - 0.5 K/cumm [facility] Basophil abs 0.1 0.0 - 0.1 K/cumm [facility] Neutrophil pct 56.6 % [facility] Comment: Interpretive Data Percent cell count reference ranges are not reported, since discordance with absolute values may lead to misinterpretation of CBC data. Current Interpretive Data was last revised on 2017. Imm gran pct 0.3 % [facility] Comment: Interpretive Data Percent cell count reference ranges are not reported, since discordance with absolute values may lead to misinterpretation of CBC data. Current Interpretive Data was last revised on 2017. Lymphocyte pct 30.7 % [facility] Comment: Interpretive Data Percent cell count reference ranges are not reported, since discordance with absolute values may lead to misinterpretation of CBC data. Current Interpretive Data was last revised on 2017. Monocyte pct 8.0 % [facility] Comment: Interpretive Data Percent cell count reference ranges are not reported, since discordance with absolute values may lead to misinterpretation of CBC data. Current Interpretive Data was last revised on 2017. Eosinophil pct 3.7 % [facility] Comment: Interpretive Data Percent cell count reference ranges are not reported, since discordance with absolute values may lead to misinterpretation of CBC data. Current Interpretive Data was last revised on 2017. Basophil pct 0.7 % [facility] Comment: Interpretive Data Percent cell count reference ranges are not reported, since discordance with absolute values may lead to misinterpretation of CBC data. Current Interpretive Data was last revised on 2017. Blood 05/01/2024 3:26 AM HEARING AID ASSEMBLY SUPERVISOR 05/01/2024 3:40 AM HEARING AID ASSEMBLY SUPERVISOR Marilia Cooper PROFESSOR OF COMMUNICATION ARTS LAB BLOOD ORDERABLES Valeri l Result [facility] [address] [facility] Department of Laboratories [place], [place] [id number] * CBC with auto differential (05/01/2024 3:26 AM HEARING AID ASSEMBLY SUPERVISOR) WBC 7.4 3.8 - 9.9 K/cumm Hgb 13.0 13.0 - 17.5 g/dL [facility] Hct 39.0 38.9 - 50.3 % [facility] Plt 226 150 - 400 K/cumm [facility] MPV 9.5 9.1 - 12.3 fL [facility] RBC 4.33 4.30 - 5.80 M/cumm [facility] MCV 90.1 81.3 - 96.4 fL [facility] MCH 30.0 27.1 - 33.3 pg [facility] MCHC 33.3 32.3 - 35.7 g/dL [facility] RDW CV 12.1 11.1 - 14.9 % [facility] RDW SD 39.7 35.7 - 48.1 fL [facility] NRBC abs 0.00 0.00 - 0.01 K/cumm [facility] Blood 05/01/2024 3:26 AM HEARING AID ASSEMBLY SUPERVISOR 05/01/2024 3:40 AM HEARING AID ASSEMBLY SUPERVISOR Marilia Cooper PROFESSOR OF COMMUNICATION ARTS LAB BLOOD ORDERABLES Valeri l Result Performing Organization Address [facility] Co de Phone Number [address] [employer] [place] [address] * Phosphorus (05/01/2024 3:26 AM HEARING AID ASSEMBLY SUPERVISOR) Phosphorus, pl 4.4 2.3 - 4.5 mg/dL Blood 05/01/2024 3:26 AM HEARING AID ASSEMBLY SUPERVISOR 05/01/2024 3:40 AM HEARING AID ASSEMBLY SUPERVISOR Marilia Cooper PROFESSOR OF COMMUNICATION ARTS LAB BLOOD ORDERABLES Valeri l Result Performing Organization Address [facility] Co de Phone Number [address] [employer] [place] [address] * Magnesium (05/01/2024 3:26 AM HEARING AID ASSEMBLY SUPERVISOR) Magnesium 1.8 1.4 - 2.5 mg/dL Blood 05/01/2024 3:26 AM HEARING AID ASSEMBLY SUPERVISOR 05/01/2024 3:40 AM HEARING AID ASSEMBLY SUPERVISOR Marilia Cooper PROFESSOR OF COMMUNICATION ARTS LAB BLOOD ORDERABLES Valeri l Result Performing Organization Address City/[facility] Co de Phone Number [address] [employer] [place] [address] * (ABNORMAL) Comprehensive metabolic panel (05/01/2024 3:26 AM HEARING AID ASSEMBLY SUPERVISOR) Sodium 139 135 - 145 mmol/L Potassium, pl 3.9 3.3 - 4.9 mmol/L [facility] Chloride 105 97 - 110 mmol/L [facility] CO2 24 22 - 32 mmol/L [facility] Anion gap 10 2 - 15 mmol/L [facility] BUN 12 6 - 25 mg/dL [facility] Creatinine 0.70(L) 0.80 - 1.30 mg/dL [facility] Glucose 109 70 - 199 mg/dL [facility] Comment: Interpretive Data Fasting glucose >/= 126 [...] 2022. Calcium 9.5 8.5 - 10.3 mg/dL [facility] Bilirubin, total 0.3 0.1 - 1.2 mg/dL [facility] Protein, pl 6.5 6.5 - 8.5 g/dL [facility] Albumin 4.0 3.5 - 5.0 g/dL [facility] Alk phos 120 40 - 130 Units/L [facility] ALT 12 7 - 55 Units/L [facility] AST 20 10 - 50 Units/L [facility] Blood 05/01/2024 3:26 AM HEARING AID ASSEMBLY SUPERVISOR 05/01/2024 3:40 AM HEARING AID ASSEMBLY SUPERVISOR us Marilia Cooper NP LAB BLOOD ORDERABLES Valeri su Result [facility] [address] [facility] Department [place] [address] * XR Chest 1 View (04/30/2024 10:36 AM HEARING AID ASSEMBLY SUPERVISOR) Anatomical Region Laterality Modality Body, Chest N/A Computed Radiogr aphy 04/30/2024 12:3 9 PM HEARING AID ASSEMBLY SUPERVISOR Narrative 04/30/2024 12:41 PM HEARING AID ASSEMBLY SUPERVISOR EXAM DESCRIPTION: XR CHEST 1 VIEW REASON [...] D: ??04/30/2024 12:41 PM T: Report ID: [id number] Reading Location: ??[id number] Procedure Note Vin Snow MD - 04/30/2024 [...] 12:41 PM - Electronically signed by Vin Snow M.D. MZ T: Report ID: [id number] Reading Location: [id number] us Saim Alston DO IMG XR PROCEDURES Final Result * ECG 12 lead (04/30/2024 9:10 AM HEARING AID ASSEMBLY SUPERVISOR) Pathologist [facility] Ventricular Rate EKG/Min 77 BPM [facility] Atrial Rate 77 BPM [facility] OH-Interval (MSEC) 148 ms [facility] QRS-Interval (MSEC) 92 ms [facility] QT-Interval (MSEC) 404 ms [facility] QTc 457 ms [facility] P [place] 62 degrees [facility] R [place] 79 degrees [facility] T [place] 54 degrees [facility] Diagnosis Normal sinus rhythm Normal ECG When compared with ECG of 29-APR-2024 13:26, No significant change was found Confirmed by FREDIS RICCI M.D. ([id number]) on 04/30/2024 11:01:22 PM [facility] 04/30/2024 9:10 AM HEARING AID ASSEMBLY SUPERVISOR 04/30/2024 11:01 PM HEARING AID ASSEMBLY SUPERVISOR Saim Alston DO ECG ORDERABLES Final Result Performing Organization Address [facility] de Phone Number [facility] * Troponin T high-sensitivity (04/30/2024 8:42 AM HEARING AID ASSEMBLY SUPERVISOR) [facility] Trop T hs <6 <=22 ng/L Comment: Interpretive Data For further hscTnT resources including the diagnostic algorithm and an aid in interpretation, copy and paste this link: https://nrl.testcatalog.org/show/hsTrop Current Interpretive Data last revised 2020. Blood 04/30/2024 8:42 AM HEARING AID ASSEMBLY SUPERVISOR 04/30/2024 8:55 AM HEARING AID ASSEMBLY SUPERVISOR SaCool de Sacafa DO LAB BLOOD ORDERABLES Final Resul t Performing Organization Address City/[facility]/ZIP Co de Phone Number [facility] [address] [facility] Department [place] [address] * eGFR (04/30/2024 8:42 AM HEARING AID ASSEMBLY SUPERVISOR) [facility] eGFR >90 >=60 mL/min/1. 73 m2 Comment: [...] last reviewed 2021. Blood 04/30/2024 8:42 AM HEARING AID ASSEMBLY SUPERVISOR 04/30/2024 8:55 AM HEARING AID ASSEMBLY SUPERVISOR us Marilia Cooper PROFESSOR OF COMMUNICATION ARTS LAB BLOOD ORDERABLES Valeri su Result [facility] [address] [facility] Department [place] [address] * Differential, auto (04/30/2024 8:42 AM HEARING AID ASSEMBLY SUPERVISOR) Pathologist [facility] Neutrophil abs 3.7 1.5 - 6.5 K/cumm Imm gran abs 0.0 0.0 - 0.1 K/cumm [facility] Lymphocyte abs 1.5 0.8 - 3.3 K/cumm [facility] Monocyte abs 0.5 0.2 - 0.8 K/cumm [facility] Eosinophil abs 0.3 0.0 - 0.5 K/cumm [facility] Basophil abs 0.1 0.0 - 0.1 K/cumm [facility] Neutrophil pct 61.7 % [facility] Comment: Interpretive Data Percent cell count reference ranges are not reported, since discordance with absolute values may lead to misinterpretation of CBC data. Current Interpretive Data was last revised on 2017. Imm gran pct 0.2 % [facility] Comment: Interpretive Data Percent cell count reference ranges are not reported, since discordance with absolute values may lead to misinterpretation of CBC data. Current Interpretive Data was last revised on 2017. Lymphocyte pct 24.6 % [facility] Comment: Interpretive Data Percent cell count reference ranges are not reported, since discordance with absolute values may lead to misinterpretation of CBC data. Current Interpretive Data was last revised on 2017. Monocyte pct 7.6 % [facility] Comment: Interpretive Data Percent cell count reference ranges are not reported, since discordance with absolute values may lead to misinterpretation of CBC data. Current Interpretive Data was last revised on 2017. Eosinophil pct 5.1 % [facility] Comment: Interpretive Data Percent cell count reference ranges are not reported, since discordance with absolute values may lead to misinterpretation of CBC data. Current Interpretive Data was last revised on 2017. Basophil pct 0.8 % [facility] Comment: Interpretive Data Percent cell count reference ranges are not reported, since discordance with absolute values may lead to misinterpretation of CBC data. Current Interpretive Data was last revised on 2017. Blood 04/30/2024 8:42 AM HEARING AID ASSEMBLY SUPERVISOR 04/30/2024 8:55 AM HEARING AID ASSEMBLY SUPERVISOR Marilia Cooper PROFESSOR OF COMMUNICATION ARTS LAB BLOOD ORDERABLES Valeri l Result [facility] [address] [facility] Department [place] [address] * CBC with auto differential (04/30/2024 8:42 AM HEARING AID ASSEMBLY SUPERVISOR) Pathologist [facility] WBC 6.1 3.8 - 9.9 K/cumm Hgb 13.0 13.0 - 17.5 g/dL [facility] Hct 39.4 38.9 - 50.3 % [facility] Plt 240 150 - 400 K/cumm [facility] MPV 9.8 9.1 - 12.3 fL [facility] RBC 4.32 4.30 - 5.80 M/cumm [facility] MCV 91.2 81.3 - 96.4 fL [facility] MCH 30.1 27.1 - 33.3 pg [facility] MCHC 33.0 32.3 - 35.7 g/dL [facility] RDW CV 12.3 11.1 - 14.9 % [facility] RDW SD 41.0 35.7 - 48.1 fL [facility] NRBC abs 0.00 0.00 - 0.01 K/cumm [facility] Blood 04/30/2024 8:42 AM HEARING AID ASSEMBLY SUPERVISOR 04/30/2024 8:55 AM HEARING AID ASSEMBLY SUPERVISOR Marilia Cooper PROFESSOR OF COMMUNICATION ARTS LAB BLOOD ORDERABLES Valeri l Result Performing Organization Address City/[facility] Co de Phone Number [address] [employer] [place] [address] * Phosphorus (04/30/2024 8:42 AM HEARING AID ASSEMBLY SUPERVISOR) Phosphorus, pl 3.1 2.3 - 4.5 mg/dL Blood 04/30/2024 8:42 AM HEARING AID ASSEMBLY SUPERVISOR 04/30/2024 8:55 AM HEARING AID ASSEMBLY SUPERVISOR Marilia Cooper PROFESSOR OF COMMUNICATION ARTS LAB BLOOD ORDERABLES Valeri l Result Performing Organization Address [facility] Co de Phone Number [address] [employer] [place] [address] * Magnesium (04/30/2024 8:42 AM HEARING AID ASSEMBLY SUPERVISOR) Magnesium 1.8 1.4 - 2.5 mg/dL Blood 04/30/2024 8:42 AM HEARING AID ASSEMBLY SUPERVISOR 04/30/2024 8:55 AM HEARING AID ASSEMBLY SUPERVISOR Marilia Cooper PROFESSOR OF COMMUNICATION ARTS LAB BLOOD ORDERABLES Valeri l Result Performing Organization Address City/[facility] Co de Phone Number [address] [employer] [place] [address] * Vitamin B12 (04/30/2024 8:42 AM HEARING AID ASSEMBLY SUPERVISOR) Vitamin B12 256 230 - 1,250 pg/mL Blood 04/30/2024 8:42 AM HEARING AID ASSEMBLY SUPERVISOR 04/30/2024 8:55 AM HEARING AID ASSEMBLY SUPERVISOR us Jasmin Alston DO LAB BLOOD ORDERABLES Final Resul t [facility] [address] [facility] [place] [address] * (ABNORMAL) Comprehensive metabolic panel (04/30/2024 8:42 AM HEARING AID ASSEMBLY SUPERVISOR) Pathologist [facility] Sodium 137 135 - 145 mmol/L Potassium, pl 4.3 3.3 - 4.9 mmol/L [facility] Chloride 105 97 - 110 mmol/L [facility] CO2 25 22 - 32 mmol/L [facility] Anion gap 7 2 - 15 mmol/L [facility] BUN 11 6 - 25 mg/dL [facility] Creatinine 0.72(L) 0.80 - 1.30 mg/dL [facility] Glucose 110 70 - 199 mg/dL [facility] Comment: Interpretive Data Fasting glucose >/= 126 [...] 2022. Calcium 9.2 8.5 - 10.3 mg/dL [facility] Bilirubin, total 0.3 0.1 - 1.2 mg/dL [facility] Protein, pl 6.3(L) 6.5 - 8.5 g/dL [facility] Albumin 3.9 3.5 - 5.0 g/dL [facility] Alk phos 118 40 - 130 Units/L [facility] ALT 12 7 - 55 Units/L [facility] AST 17 10 - 50 Units/L [facility] Blood 04/30/2024 8:42 AM HEARING AID ASSEMBLY SUPERVISOR 04/30/2024 8:55 AM HEARING AID ASSEMBLY SUPERVISOR Marilia Cooper PROFESSOR OF COMMUNICATION ARTS LAB BLOOD ORDERABLES Valeri l Result [facility] [address] [facility] Department [place] [address] * ECG 12 lead (04/29/2024 1:26 PM HEARING AID ASSEMBLY SUPERVISOR) Ventricular Rate EKG/Min [address] [facility] Atrial Rate 85 BPM [facility] OH-Interval (MSEC) 150 ms [facility] QRS-Interval (MSEC) 96 ms [facility] QT-Interval (MSEC) 402 ms [facility] QTc 478 ms [facility] P [place] 73 degrees [facility] R [place] 85 degrees [facility] T [place] 64 degrees [facility] Diagnosis Normal sinus rhythm Possible Left atrial enlargement Borderline ECG No previous ECGs available Confirmed by RICARDO KO M.D. ([id number]) on 04/29/2024 11:04:23 PM [facility] 04/29/2024 1:26 PM HEARING AID ASSEMBLY SUPERVISOR 04/29/2024 11:04 PM HEARING AID ASSEMBLY SUPERVISOR Tommy Burdick PA ECG ORDERABLES Fi nal Result Performing Organization Address [facility] Co de Phone Number [facility] * Urinalysis reflex to microscopic and culture Urine (04/29/2024 11:15 AM HEARING AID ASSEMBLY SUPERVISOR) Color, ur Straw Yellow Clarity, ur Clear Clear [facility] Specific gravity, ur 1.004 1.003 - 1.030 [facility] pH, urine 6.5 [facility] Comment: Interpretive Data ? Urine pH is affected by diet, medications, systemic acid-base disturbances, and renal tubular function. ??pH may affect urinary stone formation. ??For example, urine pH below 6.0 may help reduce the tendency for calcium phosphate stones and pH greater than 6.0 may reduce the tendency for uric acid stone formation. Source: [facility] Current Interpretive Data was last revised on 2017 Protein, ur ql Negative Negative [facility] Glucose, ur ql Negative Negative [facility] Ketones, ur Negative Negative [facility] Bilirubin, ur Negative Negative [facility] Blood, ur Negative Negative [facility] Urobilinogen, ur <2.0 <2.0 mg/dL [facility] Nitrite, ur Negative Negative [facility] Leukocyte esterase, ur Negative Negative [facility] UA reflex comment Reflex conditions for microscopic UA and culture not met. [facility] Urine 04/29/2024 11:1 5 AM [employer] SUPER[employer] 04/29/2024 11:21 AM HEARING [employer]ID [employer]SEMBLY SUPERVISOR [facility] MICROBIOLOGY - GENERAL SUDHA CSATANEDA Final Result [facility] [id number] [facility] [place] [address] * Drugs of Abuse Screen, Urine without Confirmation (04/29/2024 11:15 AM [employer]ARING [employer]SEMBL[employer] SUPERVISOR) Amphetamine, ur Not Detected CutOff 500ng/mL Comment: Interpretive Data - Amphetamines: ??Samples containing greater than 500 ng/mL d-methamphetamine ??or other cross-reacting amphetamine compounds are reported as positive. ??Amphetamine immunoassays are subject to significant false positive rates due to cross-reactivity of non-amphetamine drugs. Confirmatory testing required for definitive results. Current Interpretive Data was last reviewed 2022. Barbiturates, ur Not Detected CutOff 200ng/mL [facility] Comment: Interpretive Data - Barbiturates: ??Samples containing greater than 200 ng/mL secobarbital or other cross-reacting barbiturate compounds are reported as positive. ??False positive and false negative results are possible. Confirmatory testing required for definitive results. Current Interpretive Data was last reviewed 2022. Benzodiazepines, ur Not Detected CutOff 100ng/mL [facility] Comment: Interpretive Data - Benzodiazepines: ??Samples containing greater than 100 ng/mL nordiazepam or other cross-reacting compounds are reported as positive. False positive and false negative results are possible. Confirmatory testing required for definitive results. Current Interpretive Data was last reviewed 2022. Cannabinoids, ur Not Detected CutOff 50 ng/mL [facility] Comment: Interpretive Data - Cannabinoids: ??Samples containing greater than 50 ng/mL delta-9 THC -COOH or other cross-reacting compounds are reported as positive. ??False positive and false negative results are possible. ??Confirmatory testing required for definitive results. Current Interpretive Data was last reviewed 2022. Cocaine, ur Not Detected CutOff 150ng/mL [facility] Comment: Interpretive Data - Cocaine: ??Samples containing greater than 150 ng/mL benzoylecgonine or other cross-reacting compounds are reported as positive. False positive and false negative results are possible. Confirmatory testing required for definitive results. Current Interpretive Data was last reviewed 2022. Fentanyl, Ur Not Detected CutOff 5 ng/mL [facility] Comment: Interpretive Data - Fentanyl: ?? Samples containing greater than 5 ng/mL norfentanyl, fentanyl, or other cross-reacting fentanyl compounds are reported as positive. False positive and false negative results are possible. Confirmatory testing required for definitive results. Current Interpretive Data was last reviewed 2023. Methadone, ur Not Detected CutOff 300ng/mL [facility] Comment: Interpretive Data - Methadone: ??Samples containing greater than 300 ng/mL d,l-methadone or other cross-reacting compounds are reported as positive. ??False positive and false negative results are possible. Confirmatory testing required for definitive results. Current Interpretive Data was last reviewed 2022. Opiates, ur Not Detected CutOff 300ng/mL [facility] Comment: Interpretive Data - Opiates: ??Samples containing greater than 300 ng/mL morphine or other cross-reacting compounds are reported as positive. ??False positive and false negative results are possible. Confirmatory testing required for definitive results. Current Interpretive Data was last reviewed 2022. Oxycodone, ur Not Detected CutOff 100ng/mL [facility] Comment: Interpretive Data - Oxycodone: ??Samples containing greater than 100 ng/mL oxycodone or other cross-reacting compounds are reported as ??positive. ??False positive and false negative results are possible. Confirmatory testing required for definitive results. Current Interpretive Data was last reviewed 2022. Phencyclidine, ur Not Detected CutOff 25 ng/mL [facility] Comment: Interpretive Data - Phencyclidine: ??Samples containing [...] on 2017. Urine 04/29/2024 11:1 5 AM HEARING AID ASSEMBLY SUPERVISOR 04/29/2024 11:21 AM HEARING AID ASSEMBLY SUPERVISOR Narrative ALBER - 04/29/2024 11:48 AM HEARING AID ASSEMBLY SUPERVISOR Drug of Abuse screening is performed by immunoassay for medical purposes only. ??This is not to be used for Pain Management purposes. [facility] Jeffrey FLORES LAB URINE ORDERABLES Final Resu lt ALBER [address] [facility] [place] [address] * Influenza A/B, RSV, and COVID-19 PCR Nasopharyngeal (04/29/2024 11:04 AM HEARING AID ASSEMBLY SUPERVISOR) COVID-19 RNA Negative Negative Influenza A RNA Negative Negative [facility] Influenza B RNA Negative Negative [facility] RSV RNA Negative Negative [facility] Comment: Interpretive data: Testing performed by [facility]. This test is performed using the [employer] Xpert Xpress CoV-2/Flu/RSV plus assay. This is a multiplex, real-time reverse transcriptase PCR assay intended for the qualitative detection of nucleic acid from SARS-CoV-2, influenza A, influenza B, and respiratory syncytial virus. This assay has been cleared by the [place] Food and Drug administration. The performance characteristics have been verified by the [facility]. ??Results must be considered in the clinical context, and a negative result does not rule out infection. Interpretive Data last revised 2023 Nasopharyngeal 04/29/2024 11 :04 AM HEARING AID ASSEMBLY SUPERVISOR 04/29/2024 11:08 AM HEARING AID ASSEMBLY SUPERVISOR Narrative ALBER - 04/29/2024 11:51 AM HEARING AID ASSEMBLY SUPERVISOR Is the Patient experiencing symptoms consistent with COVID?->No Joshua Murphy MD LAB MICROBIOLOGY - GENERAL ORDE RABLES Final Result Performing Organization Address [facility] Co de Phone Number ALBER [address] [facility] Department [place] [address] * eGFR (04/29/2024 11:04 AM HEARING AID ASSEMBLY SUPERVISOR) eGFR >90 >=60 mL/min/1. 73 m2 Comment: [...] reviewed 2021. Blood 04/29/2024 11:0 4 AM HEARING AID ASSEMBLY SUPERVISOR 04/29/2024 11:08 AM HEARING AID ASSEMBLY SUPERVISOR Joshua Murphy MD LAB BLOOD ORDERABLES Final Resu lt Performing Organization Address City/[facility]/ZIP Co de Phone Number ALBER [address] [facility] [place] [address] * Differential, auto (04/29/2024 11:04 AM HEARING AID ASSEMBLY SUPERVISOR) Pathologist [facility] Neutrophil abs 5.1 1.5 - 6.5 K/cumm Imm gran abs 0.0 0.0 - 0.1 K/cumm [facility] Lymphocyte abs 1.6 0.8 - 3.3 K/cumm [facility] Monocyte abs 0.6 0.2 - 0.8 K/cumm [facility] Eosinophil abs 0.1 0.0 - 0.5 K/cumm [facility] Basophil abs 0.1 0.0 - 0.1 K/cumm [facility] Neutrophil pct 68.9 % [facility] Comment: Interpretive Data Percent cell count reference ranges are not reported, since discordance with absolute values may lead to misinterpretation of CBC data. Current Interpretive Data was last revised on 2017. Imm gran pct 0.1 % [facility] Comment: Interpretive Data Percent cell count reference ranges are not reported, since discordance with absolute values may lead to misinterpretation of CBC data. Current Interpretive Data was last revised on 2017. Lymphocyte pct 21.5 % [facility] Comment: Interpretive Data Percent cell count reference ranges are not reported, since discordance with absolute values may lead to misinterpretation of CBC data. Current Interpretive Data was last revised on 2017. Monocyte pct 7.7 % [facility] Comment: Interpretive Data Percent cell count reference ranges are not reported, since discordance with absolute values may lead to misinterpretation of CBC data. Current Interpretive Data was last revised on 2017. Eosinophil pct 1.1 % [facility] Comment: Interpretive Data Percent cell count reference ranges are not reported, since discordance with absolute values may lead to misinterpretation of CBC data. Current Interpretive Data was last revised on 2017. Basophil pct 0.7 % [facility] Comment: Interpretive Data Percent cell count reference ranges are not reported, since discordance with absolute values may lead to misinterpretation of CBC data. Current Interpretive Data was last revised on 2017. Blood 04/29/2024 11:0 4 AM HEARING AID ASSEMBLY SUPERVISOR 04/29/2024 11:08 AM HEARING AID ASSEMBLY SUPERVISOR Result [facility] Joshua Murphy MD LAB BLOOD ORDERABLES Final Resu lt Performing Organization Address City/[facility]/ZIP Co de Phone Number [address] [place] [employer] [place] [address] * Thyroid Function Colon (04/29/2024 11:04 AM HEARING AID ASSEMBLY SUPERVISOR) TSH 1.08 0.30 - 4.20 mcIUnit/mL Blood 04/29/2024 11:0 4 AM HEARING AID ASSEMBLY SUPERVISOR 04/29/2024 11:08 AM HEARING AID ASSEMBLY SUPERVISOR Result [facility] FLORES LAB BLOOD ORDERABLES Final Resu lt Performing Organization Address [facility] Co de Phone Number [address] [place] [employer] [place] [address] * CBC with auto differential (04/29/2024 11:04 AM HEARING AID ASSEMBLY SUPERVISOR) WBC 7.4 3.8 - 9.9 K/cumm Hgb 14.0 13.0 - 17.5 g/dL [facility] Hct 43.0 38.9 - 50.3 % [facility] Plt 259 150 - 400 K/cumm [facility] MPV 9.4 9.1 - 12.3 fL [facility] RBC 4.74 4.30 - 5.80 M/cumm [facility] MCV 90.7 81.3 - 96.4 fL [facility] MCH 29.5 27.1 - 33.3 pg [facility] MCHC 32.6 32.3 - 35.7 g/dL [facility] RDW CV 12.1 11.1 - 14.9 % [facility] RDW SD 40.1 35.7 - 48.1 fL [facility] NRBC abs 0.00 0.00 - 0.01 K/cumm [facility] Blood (Blood, Venous) 04/29/2024 11:04 AM HEARING AID ASSEMBLY SUPERVISOR 04/29/2024 11:08 AM HEARING AID ASSEMBLY SUPERVISOR Joshua Murphy MD LAB BLOOD ORDERABLES Final Resu lt Performing Organization Address City/[facility] Co de Phone Number ALBER [facility] [place] [address] * (ABNORMAL) Ethanol (04/29/2024 11:04 AM HEARING AID ASSEMBLY SUPERVISOR) Pathologist [facility] Ethanol 58(H) <=10 mg/dL Comment: Interpretive Data Legal limit of intoxication > or = 80 mg/dL Levels > or = 400 mg/dL are potentially TOXIC. Current interpretive data was last revised on 2018. Blood 04/29/2024 11:0 4 AM HEARING AID ASSEMBLY SUPERVISOR 04/29/2024 11:08 AM HEARING AID ASSEMBLY SUPERVISOR Rehab Jeffrey FLORES LAB BLOOD ORDERABLES Final Resu Performing Organization Address [facility] de Phone Number ALBER [facility] [place] [address] * (ABNORMAL) Comprehensive metabolic panel (04/29/2024 11:04 AM HEARING AID ASSEMBLY SUPERVISOR) [facility] Sodium 138 135 - 145 mmol/L Potassium, pl 4.0 3.3 - 4.9 mmol/L [facility] Chloride 100 97 - 110 mmol/L [facility] CO2 27 22 - 32 mmol/L [facility] Anion gap 11 2 - 15 mmol/L [facility] BUN 11 6 - 25 mg/dL [facility] Creatinine 0.69(L) 0.80 - 1.30 mg/dL [facility] Glucose 117 70 - 199 mg/dL [facility] Comment: Interpretive Data Fasting glucose >/= 126 [...] 2022. Calcium 9.6 8.5 - 10.3 mg/dL [facility] Bilirubin, total 0.3 0.1 - 1.2 mg/dL [facility] Protein, pl 7.7 6.5 - 8.5 g/dL [facility] Albumin 4.7 3.5 - 5.0 g/dL [facility] Alk phos 142(H) 40 - 130 Units/L [facility] ALT 13 7 - 55 Units/L [facility] AST 22 10 - 50 Units/L ALBER Blood 04/29/2024 11:0 4 AM HEARING AID ASSEMBLY SUPERVISOR 04/29/2024 11:08 AM HEARING AID ASSEMBLY SUPERVISOR [facility] Jeffrey FLORES LAB BLOOD ORDERABLES Final Resu lt ALBER GAN [address] [facility] [place] [address] from Last 3 Months Insurance [facility] Advance Directives For more information, please contact: [phone] * Full Code (Latest Code Status on File) Date Activated Date Inactivated Comments 04/29/2024 1:21 PM 05/03/2024 11:16 PM * Full Code Date Activated Date Inactivated Comments 01/14/2024 6:12 PM 01/19/2024 3:25 PM Care Teams Oil Lease Operator Relationship Specialty Start Date End Date Unknown, Notinfile PCP - General 01/14/24
[2024-05-26 06:09] VITALS: BP 144/90; PULSE 67; RESP 14; O2SAT 98
--- NOTE | 2024-05-26 06:57 | ED_ITS ---
HPI - Alcohol General Chief Complaint: Alcohol Stated Complaint: alcohol detox Time Seen by Provider: 05/26/24 04:53 History of Present Illness HPI narrative: 38-year-old male with otherwise no significant past medical history presenting to the emergency department for values on alcohol abuse counseling. Patient was previously successfully completed a course on detox therapy but had a relapse this afternoon. He states he had 4 shooters was of alcohol at about 2:00 p.m. but has not had anything to drink since after that. Patient feels remorse as wishing to go back and alcoholic detox. He is not having any, withdrawal type symptoms and previous to this episode was clean for the last few weeks. He has no symptoms at this time and otherwise has no complaints. He is asking about resources. Review of Systems Review of Systems: As reviewed above in H Exam Narrative: GENERAL: [Well-appearing, well-nourished, and in no acute distress.] HEAD: [Normocephalic, atraumatic.] EYES: [PERRLA and EOMI.] ENT: Nares clear, no rhinorrhea or epistaxis. Mucous membranes moist. NECK: Supple. CHEST: [Clear to auscultation. No respiratory distress.] HEART: [Regular rate and rhythm]. No murmur heard. [Normal peripheral pulses.] ABDOMEN: [Soft, nondistended], [nontender], [No rigidity or guarding] EXTREMITIES: Normal range of motion. [No edema.] SKIN: Warm, dry, no rash. NEURO: [No focal deficits]. Alert and oriented [x3.] PSYCH: [Normal mood and affect.] Course Vital Signs Vital signs: Vital Signs Pulse Rate 67 05/26/24 06:09 Respiratory Rate 14 05/26/24 06:09 Blood Pressure 144/90 H 05/26/24 06:09 Pulse Oximetry 98 05/26/24 06:09 Pulse Rate 67 05/26/24 06:09 Respiratory Rate 14 05/26/24 06:09 Blood Pressure 144/90 H 05/26/24 06:09 Pulse Oximetry 98 05/26/24 06:09 MDM - Alcohol MDM Narrative Medical decision making narrative: 38-year-old male with history of alcohol abuse presenting to the emergency department enquiring about alcoholic detox therapy. His last drink was 2:00 p.m. is not clinically intoxicated now. Previous is drinks today he was sober for the last few weeks and successfully going through alcoholic detox. He has no signs or symptoms withdrawal with normal vital signs. He has no concerning physical exam findings and otherwise is calm and cooperative. We talked about detox therapy and options with the local treatment centers. [facility] and was also given other resources if he prefers to go outside the city. Patient verbalized understanding and was safe for discharge home at this time. Medical Records Attestation: I reviewed the patient's medical records. Discharge Plan Discharge Clinical Impression: Alcohol abuse counseling and surveillance Patient Disposition: Home, Self-Care Condition: Stable Instructions: Antibiotic Form, Abuse of Alcohol (ED) Additional Instructions: [facility] at [address], [place] [address]. They will be able to help with detox and even arrange transportation to any of their centers. Unfortunately we were not able to transfer you as a patient to their facility and you will need to walk-in of your own volition to start the process. Their phone number is [phone]. Patient Language: Nepali Follow-up/Referrals: PHYSICIAN,CHURCH HISTORY PROFESSOR [Primary Care Provider] - Time of Disposition: 05:47
== END 2024-05-26 06:12 | disposition home or self-care (01) ==
PROVIDERS: Emergency Provider Student in an Organized Health Care Education/Training Program
DX: F10.10 Alcohol abuse, uncomplicated (principal); Z71.41 Alcohol abuse counseling and surveillance of alcoholic; Y90.9 Presence of alcohol in blood, level not specified
CPT/HCPCS: 99283